=== PATIENT | male | born 1945 | race Caucasian/White ===

== ENCOUNTER 2022-09-14 12:36 | Emergency (ER) | payer MEDICARE, SELFPAY ==
[2022-09-14 12:36] VITALS: BP 139/57; PULSE 101; RESP 16; TEMP 37.5; O2SAT 96
--- NOTE | 2022-09-14 13:23 | EKG12_ITS ---
Test Reason : SOB Blood Pressure : / mmHG Vent. Rate : 088 BPM Atrial Rate : 088 BPM P-R Int : 150 ms QRS Dur : 104 ms QT Int : 414 ms P-R-T Axes : 081 -54 073 degrees QTc Int : 500 ms Normal sinus rhythm Low voltage QRS Left anterior fascicular block Prolonged QT Abnormal ECG Confirmed by AMANDA JASSO, JERONIMO ([id number]), writer editor LINDA MCCONNELL ([id number]) on 09/17/2022 1:38:01 PM Referred By: SANTHOSH Confirmed By:JERONIMO PATEL MD
[2022-09-14 13:43] VITALS: O2SAT 97
--- NOTE | 2022-09-14 13:52 | EDS_ITS ---
HPI <RENU Stevenson - Last Filed: 09/14/22 20:25> History of Present Illness Chief Complaint: Shortness of Breath Narrative Narrative: Patient presenting today due to shortness of breath, nausea, vomiting, and diarrhea that he has had intermittently since March. He reports that in April he did have a case of pneumonia and worries that he might have pneumonia again as he has been feeling increasingly weak over the past week. He is on 2 L O2 at baseline and has not required more oxygen, he does not feel more short of breath than usual. He reports that he just provided a stool sample to his PCP to evaluate for the diarrhea. He did have a CT scan of his chest last week due to a history of lung cancer that is in remission and was not told that he had any pneumonia on that scan. He reports he came in today because he had a few more episodes than usual of the vomiting. He denies any fever, chills, chest pain, abdominal pain, and urinary symptoms. PFSH <RENU Stevenson - Last Filed: 09/14/22 20:25> PFSH Allergy/AdvReac Type Severity Reaction Status Date / Time No Known Allergies Allergy Verified 09/14/22 12:38 Social History Smoking Status: Never smoker ROS <RENU Stevenson - Last Filed: 09/14/22 20:25> ROS ED Constitutional Constitutional ED: Denies chills or fever(s) Cardiovascular Cardiovascular: Denies chest pain or palpitations Respiratory/Chest Respiratory/Chest: Reports dyspnea and dyspnea on exertion; Denies cough Gastrointestinal Gastrointestinal: Reports diarrhea, nausea and vomiting; Denies abdominal pain or constipation Genitourinary Genitourinary ED: Denies dysuria, hematuria or urinary urgency Musculoskeletal Musculoskeletal: Denies arthralgias or myalgias Integumentary Denies abscess, Abrasions or rash Neurologic Neurologic: Reports weakness; Denies confusion or dizziness EXAM <RENU Stevenson - Last Filed: 09/14/22 20:25> Physical Exam Const Vital Signs: 09/14/22 12:36 09/14/22 13:43 09/14/22 16:50 Temperature 99.5 F H Temperature Source Temporal Pulse Rate 101 H 83 Respiratory Rate 16 16 Respiratory Effort Short of Breath Blood Pressure 139/57 H 136/84 H Blood Pressure Mean 84 101 Pulse Ox 96 96 Oxygen Delivery Method Nasal Cannula Nasal Cannula Nasal Cannula Oxygen Flow Rate (L/min) 2 2 2 09/14/22 18:35 Temperature Temperature Source Pulse Rate 82 Respiratory Rate 15 Respiratory Effort Blood Pressure 134/66 H Blood Pressure Mean Pulse Ox 95 Oxygen Delivery Method Oxygen Flow Rate (L/min) Positive well nourished, well developed and no apparent distress General Appearance ED: well developed HEENT Reports normocephalic and head/scalp atraumatic Mouth ED: Yes moist mucous membranes normal Eyes PERRL and EOMs intact bilaterally Neck full ROM and supple Chest Wall inspection of chest normal Resp normal respiratory effort and clear to auscultation bilaterally Cardio regular rate and regular rhythm GI soft to palpation, non-tender, non-distended and no masses Back/Spine normal ROM and normal to inspection Extremity normal to inspection and full ROM Neuro oriented x3, CN's II-XII intact bilaterally, moves all extremities, no focal motor deficits and no sensory deficits noted Sensorium / Orientation: awake and alert Psych mental status grossly normal and thought process normal Skin no rashes or lesions noted and no wounds <Dr. Garcia Santos MD - Last Filed: 09/14/22 18:20> Physical Exam Const Vital Signs: 09/14/22 12:36 09/14/22 13:43 09/14/22 16:50 Temperature 99.5 F H Temperature Source Temporal Pulse Rate 101 H 83 Respiratory Rate 16 16 Respiratory Effort Short of Breath Blood Pressure 139/57 H 136/84 H Blood Pressure Mean 84 101 Pulse Ox 96 96 Oxygen Delivery Method Nasal Cannula Nasal Cannula Nasal Cannula Oxygen Flow Rate (L/min) 2 2 2 09/14/22 18:35 Temperature Temperature Source Pulse Rate 82 Respiratory Rate 15 Respiratory Effort Blood Pressure 134/66 H Blood Pressure Mean Pulse Ox 95 Oxygen Delivery Method Oxygen Flow Rate (L/min) MDM <RENU Stevenson - Last Filed: 09/14/22 20:25> [facility] Narrative Medical decision making narrative: Patient presenting today due to vague complaints of nausea, vomiting, diarrhea, shortness of breath, and weakness that he has had since March. The diarrhea is being evaluated by his PCP and he just submitted a stool sample yesterday to assess for C. difficile and other causes. Patient does not feel more short of breath than usual and is on 2 L at baseline, he is 96% on 2 L here. He is well- appearing and in no acute distress. He is not having any chest pain or abdominal pain. Abdomen is soft and nontender, not suggesting an acute abdomen. Labs to be obtained to rule out leukocytosis, anemia, electrolyte abnormality, LILIYA, ACS. Labs overall are abnormal aside from a slight anemia, troponin WNL, EKG normal sinus rhythm. Chest x-ray obtained to rule out infiltrate and other cardiopulmonary findings and is negative. He is well-appearing and in no acute distress. He did tell the attending ED physician that he has been falling more recently, therefore additional labs were obtained. Head CT obtained and is negative for any acute finding. ABG unremarkable. I have discussed the possibility of placement patient for rehabilitation and he declines at this time. UA does show hematuria, he reports that he has had this for weeks. He prefers to follow-up outpatient for this but I did offer to obtain a CT scan of the abdomen and pelvis. Patient would like to go home. This is reasonable given we are not finding any acute cause for his weakness. This does seem like it is a ongoing issue that he has had chronically for months. He is to follow- up with his PCP and has been given return instructions. He is comfortable with plan. Lab Data Attestation: I reviewed the patient's lab results. Lab results narrative: H&H 11.1 and 34.3 ABG readings: pH 7.45, CO2 43, PO2 92, O2 saturation 97% Labs: Laboratory Results - last 24 hr 09/14/22 09/14/22 09/14/22 13:54 13:54 13:54 WBC 6.1 RBC 3.56 L Hgb 11.1 L Hct 34.3 L MCV 96.3 H MCH 31.2 MCHC 32.4 RDW Std Deviation 42.2 RDW Coeff of Trudy 11.9 Plt Count 287 MPV 8.7 Immature Gran % (Auto) 0.300 Neut % (Auto) 83.5 H Lymph % (Auto) 6.4 L Centre % (Auto) 8.6 Eos % (Auto) 0.5 Baso % (Auto) 0.7 Absolute Neuts (auto) 5.1 Absolute Lymphs (auto) 0.39 L Nucleated RBC % 0 Platelet Estimate ADEQUATE RBC Morphology NORM C+C Sodium 136 Potassium 3.8 Chloride 101 Carbon Dioxide 30.0 Anion Gap 5 BUN 8 Creatinine 0.47 L Est GFR (MDRD) Af Amer 225 Est GFR (MDRD) Non-Af 186 BUN/Creatinine Ratio 17.1 Glucose 112 H Calcium 8.5 Troponin I High Sens 8 TSH 0.21 L Urine Color Urine Clarity Urine pH Ur Specific Boyd Urine Protein Urine Glucose (UA) Urine Ketones Urine Occult Blood Urine Nitrite Urine Bilirubin Urine Urobilinogen Ur Leukocyte Esterase Urine RBC Urine WBC Ur Squamous Epith Cells Urine Bacteria Urine Mucus 09/14/22 16:45 WBC RBC Hgb Hct MCV MCH MCHC RDW Std Deviation RDW Coeff of Trudy Plt Count MPV Immature Gran % (Auto) Neut % (Auto) Lymph % (Auto) Centre % (Auto) Eos % (Auto) Baso % (Auto) Absolute Neuts (auto) Absolute Lymphs (auto) Nucleated RBC % Platelet Estimate RBC Morphology Sodium Potassium Chloride Carbon Dioxide Anion Gap BUN Creatinine Est GFR (MDRD) Af Amer Est GFR (MDRD) Non-Af BUN/Creatinine Ratio Glucose Calcium Troponin I High Sens TSH Urine Color Yellow Urine Clarity Clear Urine pH 6.0 Ur Specific Boyd 1.020 Urine Protein 30 H Urine Glucose (UA) Normal Urine Ketones 5 H Urine Occult Blood 10 H Urine Nitrite Negative Urine Bilirubin 1 H Urine Urobilinogen 4 H Ur Leukocyte Esterase 25 H Urine RBC 0 SEEN Urine WBC 0-5 SEEN Ur Squamous Epith Cells 0 SEEN Urine Bacteria 1+ Urine Mucus 1+ ABG Data ABG results: ABG 09/14/22 17:17 Specimen Type ART Sample Site R Radial pH 7.45 Bicarbonate Actual 30.0 H Total CO2 31 Base Excess 6 H O2 Saturation 97 ABG pCO2 43.4 ABG pO2 92 Yang Test Positive O2 Delivery Device Cannula Liter Flow 3.0 Radiography Chest X-Ray - ED: Read by ED Physician and Read by Radiologist X-Ray: Read by ED Physician and Read by Radiologist Diagnostic Testing: Clinical Impression(s) from Imaging Studies Chest X-Ray 09/14/22 14:05 IMPRESSION: There are no acute findings. Electronically Signed: Abraham Banda MD at 14:17 EDT , Brain CT 09/14/22 16:00 IMPRESSION: Age-related changes of the brain. Electronically Signed: Chase Snider DO at 16:48 EDT , EKG Initial EKG: Comments: 88 bpm, normal sinus rhythm, no ST elevation, reviewed and interpreted by attending ED physician <Dr. Garcia Santos MD - Last Filed: 09/14/22 18:20> [facility] Lab Data Labs: Laboratory Results - last 24 hr 09/14/22 09/14/22 09/14/22 13:54 13:54 13:54 WBC 6.1 RBC 3.56 L Hgb 11.1 L Hct 34.3 L MCV 96.3 H MCH 31.2 MCHC 32.4 RDW Std Deviation 42.2 RDW Coeff of Trudy 11.9 Plt Count 287 MPV 8.7 Immature Gran % (Auto) 0.300 Neut % (Auto) 83.5 H Lymph % (Auto) 6.4 L Centre % (Auto) 8.6 Eos % (Auto) 0.5 Baso % (Auto) 0.7 Absolute Neuts (auto) 5.1 Absolute Lymphs (auto) 0.39 L Nucleated RBC % 0 Platelet Estimate ADEQUATE RBC Morphology NORM C+C Sodium 136 Potassium 3.8 Chloride 101 Carbon Dioxide 30.0 Anion Gap 5 BUN 8 Creatinine 0.47 L Est GFR (MDRD) Af Amer 225 Est GFR (MDRD) Non-Af 186 BUN/Creatinine Ratio 17.1 Glucose 112 H Calcium 8.5 Troponin I High Sens 8 TSH 0.21 L Urine Color Urine Clarity Urine pH Ur Specific Boyd Urine Protein Urine Glucose (UA) Urine Ketones Urine Occult Blood Urine Nitrite Urine Bilirubin Urine Urobilinogen Ur Leukocyte Esterase Urine RBC Urine WBC Ur Squamous Epith Cells Urine Bacteria Urine Mucus 09/14/22 16:45 WBC RBC Hgb Hct MCV MCH MCHC RDW Std Deviation RDW Coeff of Trudy Plt Count MPV Immature Gran % (Auto) Neut % (Auto) Lymph % (Auto) Centre % (Auto) Eos % (Auto) Baso % (Auto) Absolute Neuts (auto) Absolute Lymphs (auto) Nucleated RBC % Platelet Estimate RBC Morphology Sodium Potassium Chloride Carbon Dioxide Anion Gap BUN Creatinine Est GFR (MDRD) Af Amer Est GFR (MDRD) Non-Af BUN/Creatinine Ratio Glucose Calcium Troponin I High Sens TSH Urine Color Yellow Urine Clarity Clear Urine pH 6.0 Ur Specific Boyd 1.020 Urine Protein 30 H Urine Glucose (UA) Normal Urine Ketones 5 H Urine Occult Blood 10 H Urine Nitrite Negative Urine Bilirubin 1 H Urine Urobilinogen 4 H Ur Leukocyte Esterase 25 H Urine RBC 0 SEEN Urine WBC 0-5 SEEN Ur Squamous Epith Cells 0 SEEN Urine Bacteria 1+ Urine Mucus 1+ ABG Data ABG results: ABG 09/14/22 17:17 Specimen Type ART Sample Site R Radial pH 7.45 Bicarbonate Actual 30.0 H Total CO2 31 Base Excess 6 H O2 Saturation 97 ABG pCO2 43.4 ABG pO2 92 Yang Test Positive O2 Delivery Device Cannula Liter Flow 3.0 Radiography Diagnostic Testing: Clinical Impression(s) from Imaging Studies Chest X-Ray 09/14/22 14:05 IMPRESSION: There are no acute findings. Electronically Signed: Abraham Banda MD at 14:17 EDT , Brain CT 09/14/22 16:00 IMPRESSION: Age-related changes of the brain. Electronically Signed: Chase Snider DO at 16:48 EDT , Treatment and Re-Evaluation Comments:: Seen and evaluated independently and in conjunction with physician dairy and food laboratory assistant. Agree with notes above unless documented otherwise. Patient initially states he is here because he has been vomiting a little more than usual, he has diarrhea off and on that is being worked up by his physician, he has COPD, and with the 's assistance, it sounds like he has been treating his COPD symptoms by putting his home oxygen on and turning it up as opposed to using his albuterol, which he has not used once in the past week. He has been more short of breath than usual in the last week but not coughing more or producing any different colored sputum. Denies any known fevers or chills although he has a temperature of 99.5 here. He states his appetite is poor and his oral intake has been poor but he is drinking fluids and urinating, he does have some urgency but that is not necessarily new. states for the past 3 weeks he has been off balance and causing falls without any major injuries, the patient denies any headache, numbness or tingling or weakness that is focal, or changes in his vision or trouble talking or understanding others. States he is compliant with his maintenance COPD inhalers but basically not using any rescue. states having trouble walking due to weakness, he states it is worse in the mornings, and they both agree this is all been an issue for months. Exam: Alert and oriented x3, normal neurologic exam no aphasia, normal [id number] and normal [id number] bilaterally. Expiratory wheezes throughout, diminished, equal bilaterally, and no respiratory distress. Heart is regular no tachycardia no murmurs. Abdomen soft, nontender nondistended. Mild pedal edema, symmetric bilaterally no calf tenderness. Plan: Work-up including cardiac testing, chest x-ray 2 views, ABG, CT of the head to evaluate for possible posterior ENVIRONMENTAL SERVICES PROJECT MANAGER process, and TSH/metabolic work-up. Since the patient's work-up was normal, we offered to run some other testing, including a urinalysis, it is mildly grossly bloody. We then asked the patient about that, since he denied having hematuria to me earlier, and he states he has has been having it for couple weeks. After an extended stay and multiple rounds of the labs and delays in getting results, we offered a CT of the abdomen/pelvis but he declines and prefers to follow-up. We discussed reasons to return including urinary retention, but at this time we do not have a great explanation for his generalized weakness, nor do we have anything emergently to treat. He understands that, he is able to get up and around and does not want to be admitted for placement at this time. Discharge Plan Triage Chief Complaint: Shortness of Breath ED Midlevel Provider: Nicole Castellanos ED Provider: Garcia Santos Dx/Rx/DC Orders Clinical Impression: COPD (chronic obstructive pulmonary disease), Weakness generalized, Hematuria, Chronic diarrhea, Vomiting, Anticoagulated Instructions: ED Hematuria, ED Weakness (Uncertain Cause) Primary Care Provider: Marjorie Bruner Referrals: Marjorie Bruner MD [Primary Care Provider] - 3-5 Days Activity Restrictions/Additional Instructions: Please follow-up with your PCP regarding the blood in your urine. Please return for any worsening of symptoms. Disposition Disposition: Home, Self Care Discharge Date/Time: 09/14/22 18:36
--- NOTE | 2022-09-14 14:05 | RAD_ITS ---
STUDY: XR Chest 2 Views 09/14/2022 1:59 PM REASON FOR EXAM: Male, 76 years old. CHEST PAIN shortness of breath COMPARISON: None TECHNIQUE: XR Chest 2 Views FINDINGS: There is no demonstrated pleural abnormality. Normal heart size. Normal mediastinum. Normal ted. Prominent appearing increased interstitial lung markings. Normal visualized pulmonary arteries. There is atherosclerotic calcification of the aortic arch with tortuosity. There are diffuse degenerative changes of the visualized thoracic spine. There is degenerative osteoarthritis of the bilateral shoulders. There is no demonstrated abnormality of the visualized soft tissue structures of the upper abdomen. RAD/Chest PA and Lateral IMPRESSION: There are no acute findings. Electronically Signed: Abraham Banda MD at 14:17 EDT ,
[2022-09-14 14:08] LABS: Absolute Lymphocyte Count 0.39 X10^3/uL (0.83-4.51); Absolute Neutrophil Count 5.1 X10^3/uL (2.0-7.7); Basophil# 0.04 X10^3/uL; Basophil% 0.7 % (0-1); Eosinophil# 0.03 X10^3/uL; Eosinophils% 0.5 % (0-5); Hematocrit 34.3 % (40-54); Hemoglobin 11.1 g/dL (13.0-16.5); Lymphocyte # 0.39 X10^3/ul (0.83-4.51); Lymphocyte % 6.4 % (19-41); Mean Corp Hgb Conc 32.4 g/dL (32-36); Mean Corpuscular Hgb 31.2 pg (27.0-32.0); Mean Corpuscular Volume 96.3 fL (80-94); Mean Platelet Vol. 8.7 fl (6.2-12.0); Monocyte# 0.52 X10^3/uL; Monocyte% 8.6 % (0-10); NRBC Flagged by Analyzer 0 % (0-5); Neutrophil # 5.08 X10^3/uL (2.7-7.7); Neutrophil % 83.5 % (47-70); POSITIVE DIFFERENTIAL YES; Platelet Count 287 K/mm3 (150-450); RBC Distribution Width CV 11.9 % (11.6-14.6); RBC Distribution Width SD 42.2 fl (35.1-43.9); Red Blood Count 3.56 M/mm3 (4.6-6.2); White Blood Count 6.1 K/mm3 (4.4-11.0)
[2022-09-14 14:10] LABS: Differential Indicated SCAN CRITERIA MET
[2022-09-14 14:33] LABS: Anion Gap 5 (5-15); BUN 8 mg/dL (7-18); BUN/Creat Ratio 17.1 RATIO (10-20); Calcium,Total 8.5 mg/dL (8.5-10.1); Chloride 101 mmol/L (98-107); Creatinine, Serum 0.47 mg/dL (0.70-1.30); EST Glomerular Filtration Rate 186 mL/min (>60); Est Glom Filt Rate - Afr Amer 225 mL/min (>60); Glucose 112 mg/dL (74-106); Potassium 3.8 mmol/L (3.5-5.1); Sodium Level 136 mmol/L (136-145); Troponin-I HS 8 pg/mL (3.0-78.0)
[2022-09-14 14:58] LABS: Platelet Estimate ADEQUATE (ADEQ); Red Cell Morphology NORM C+C NORMAL (NORM C&C)
--- NOTE | 2022-09-14 16:00 | CT_ITS ---
STUDY: CT BRAIN WITHOUT CONTRAST REASON FOR EXAM: Male, 76 years old. dysequilibrium RADIATION DOSAGE (If Supplied By Facility): CTDIvol = ( 44.99 ) mGy, DLP = ( 796.11 ) mGycm TECHNIQUE: Transaxial CT imaging of the brain was performed without administration of intravenous contrast material. Individualized dose optimization techniques were used for this CT. COMPARISON: No relevant priors. FINDINGS: Normal soft tissue structures. Normal calvarium. Prominent ventricles and extra-axial spaces with mild atrophy. Bilateral white matter microangiopathic ischemic changes of the cerebral hemispheres. Normal basal ganglia and thalami. Normal brainstem. Normal cerebellum. There is no intracranial hemorrhage. There are no findings of an acute ischemic infarction. Normal visualized paranasal sinuses. CT/Brain/Head without Contrast IMPRESSION: Age-related changes of the brain. Electronically Signed: Chase Snider DO at 16:48 EDT ,
[2022-09-14 16:50] VITALS: BP 136/84; PULSE 83; RESP 16; O2SAT 96
[2022-09-14 17:01] LABS: Thyroid Stim Hormone (TSH) 0.21 uIU/mL (0.358-3.74)
[2022-09-14 17:06] LABS: Red Blood Cells-Urine 0 SEEN /hpf (0-5); Squamous Epithelial Cells - UA 0 SEEN /hpf (0-5)
[2022-09-14 17:11] LABS: Color, Urine Yellow (Yellow); Glucose, Dipstick Normal (Normal); Ketone-Dipstick 5 mg/dl (Negative); Leukocyte Esterase-Dipstick 25 /ul (Negative); Nitrite-Dipstick Negative (Negative); Occult Blood-Urine 10 /ul (Negative); Protein-Dipstick 30 mg/dl (Negative); Urine Clarity Clear (Clear); Urine Urobilinogen 4 mg/dl (Normal)
[2022-09-14 17:12] LABS: Urine Bilirubin Dipstick 1 mg/dL (Negative)
[2022-09-14 17:17] LABS: Bacteria 1+ /hpf (None Seen); Mucous, Urine 1+ /hpf (<or=2+); White Blood Cells 0-5 SEEN /hpf (0-5)
[2022-09-14 17:21] LABS: Allen Test Positive; Base Excess 6 mmol/L (-2 to +2); Blood Gas Specimen Type ART; O2 Delivery Device Cannula; PO2 92 mmHG (75-100); SITE R Radial; SO2 97 % (95-99); Total Carbon Dioxide 31 mmol/L; pCO2 43.4 mmHg (35-45); pH 7.45 (7.35-7.45)
[2022-09-14 18:35] VITALS: BP 134/66; PULSE 82; RESP 15; O2SAT 95
== END 2022-09-14 18:36 | disposition home or self-care (01) ==
PROVIDERS: Physician Assistant; Emergency Provider Emergency Medicine; PCP Internal Medicine; Visit Provider Emergency Medicine
DX: J44.9 Chronic obstructive pulmonary disease, unspecified (principal); R53.1 Weakness; R31.9 Hematuria, unspecified; K52.9 Noninfective gastroenteritis and colitis, unspecified; R11.10 Vomiting, unspecified; Z79.01 Long term (current) use of anticoagulants
CPT/HCPCS: 36600; 70450; 71046; 80048; 81001; 82803; 84443; 84484; 85025; 93005; 99282; J7030